=== PATIENT | male | born 1960 | race Caucasian/White ===

== ENCOUNTER 2019-03-28 13:52 | Emergency (ER) | payer BC, MEDICAID ==
--- NOTE | 2019-03-28 15:07 | EDM.PDOC ---
ED HPI GENERAL MEDICAL PROBLEM - General Chief Complaint: Headache Stated Complaint: HEADACHE SENT BY WALKIN Time Seen by Provider: 03/28/19 14:45 Source of Information: Reports: Patient, Family (), Provider, RN, RN Notes Reviewed History Limitations: Reports: No Limitations - History of Present Illness INITIAL COMMENTS - FREE TEXT/NARRATIVE: Clem Wilder presents to our ED today with head pain located right behind the ear. He reports the pain started yesterday after he was mowing. He does note that he was oozing a riding lawn more and going underneath several trees which caused him to talk and maneuver to avoid the branches. He reports it started as an earache but advanced to neck pain. Has been taking Advil with no release. Reports the pain as a 2 out of 10 that pulsates and comes and goes at various times and lasting for various lengths. Moving his head to the left and looking down does make his right side hurt. Denies any recent trauma or falls. He does wear bilateral hearing aids. No vision changes or history of job problems. No issues well moving the jaw. He does report a runny nose but he states that this is likely allergies. No recent plane rides or scuba diving. Denies any chest pain, shortness of breath, nausea, vomiting. He is a diabetic with a history of HLD and gout. His PCP is Sonya Hardy. Headache Pain Score (Numeric/FACES): 3 - Related Data Allergies Allergy/AdvReac Type Severity Reaction Status Date / Time metformin Allergy Nausea and Verified 03/28/19 14:07 Vomiting Home Meds: Home Meds Allopurinol [Zyloprim] 100 mg PO DAILY 03/28/19 [History] Aspirin 81 mg PO DAILY 03/28/19 [History] Diclofenac Sodium [Voltaren] 50 mg PO BID #10 tab.ec 03/28/19 [Rx] Empagliflozin [Jardiance] 25 mg PO DAILY 03/28/19 [History] Loratadine 10 mg PO DAILY 03/28/19 [History] Non-Formulary Medication [NF Drug] 0.25 mg IM WEEKLY 03/28/19 [History] Rosuvastatin [Crestor] 10 mg PO DAILY 03/28/19 [History] oxyCODONE HCl/Acetaminophen [Percocet 5-325 mg Tablet] 1 each PO QID #10 tablet 03/28/19 [Rx] Past Medical History Gastrointestinal History: Reports: Other (See Below) Other Gastrointestinal History: hernia Endocrine/Metabolic History: Reports: Diabetes, Type II Social & Family History - Tobacco Use Smoking Status *Q: Never Smoker Second Hand Smoke Exposure: No - Caffeine Use Caffeine Use: Reports: Coffee - Recreational Drug Use Recreational Drug Use: No ED ROS GENERAL - Review of Systems Review Of Systems: See Below Constitutional: Denies: Fever, Chills, Malaise, Weakness, Fatigue HEENT: Reports: Rhinitis. Denies: Ear Discharge, Ear Pain, Eye Discharge, Eye Pain, Hearing Loss, Nose Pain, Sinus Problem, Throat Pain, Throat Swelling, Vision Change Respiratory: Reports: No Symptoms. Denies: Shortness of Breath, Wheezing, Cough , Sputum Cardiovascular: Reports: No Symptoms. Denies: Chest Pain GI/Abdominal: Denies: Abdominal Pain, Diarrhea, Nausea, Vomiting Musculoskeletal: Reports: Neck Pain, Other (Head pain) - Physical Exam Exam: See Below Exam Limited By: No Limitations General Appearance: Alert, WD/WN, No Apparent Distress Eye Exam: Bilateral Eye: EOMI, PERRL Ears: Normal External Exam, Normal Canal, Hearing Grossly Normal, Normal TMs, Hearing Loss (History of and does wear bilateral hearing aids.) Nose: Normal Inspection, Normal Mucosa, No Blood Throat/Mouth: Normal Inspection, Normal Lips, Normal Teeth, Normal Gums, Normal Oropharynx, Normal Voice, No Airway Compromise Head Exam: Atraumatic, Normocephalic, Other (Tenderness noted with palpitation to mastoid process and tympanic area. No redness observed. No pain without palpation.) Neck: Normal Inspection, Supple, Full Range of Motion, Other (Pain noted with palpation of sternocleidomastoid. No pain without palpation.). No: Lymphadenopathy (L), Lymphadenopathy (R) Respiratory/Chest: No Respiratory Distress, Lungs Clear Cardiovascular: Normal Peripheral Pulses, Regular Rate, Rhythm, No Edema, No Gallop, No JVD, No Murmur Course - Vital Signs Last Recorded V/S: Last Vital Signs Temp 97.3 F 03/28/19 14:05 Pulse Resp 20 03/28/19 14:05 BP 157/104 H 03/28/19 14:05 Pulse Ox 100 03/28/19 14:05 Departure - Departure Time of Disposition: 15:08 Disposition: Home, Self-Care 01 Condition: Good Clinical Impression: Neck muscle strain Qualifiers: Encounter type: initial encounter Qualified Code(s): S16.1XXA - Strain of muscle, fascia and tendon at neck level, initial encounter - Discharge Information *PRESCRIPTION DRUG MONITORING PROGRAM REVIEWED*: No *COPY OF PRESCRIPTION DRUG MONITORING REPORT IN PATIENT IGNACIA: No Prescriptions: Diclofenac Sodium [Voltaren] 50 mg PO BID #10 tab.ec oxyCODONE HCl/Acetaminophen [Percocet 5-325 mg Tablet] 1 each PO QID #10 tablet Referrals: Sonya Hardy NP [Primary Care Provider] - Additional Instructions: You were seen today in the ED for neck pain and headache. It is felt your symptoms are the results of movements made while mowing under tree branches. You were sent a prescription for an NSAID which will help with swelling and pain. If pain gets very severe you can also take Percocet as prescribed. Be cautious with using Percocet as it may make use sleepy and impair driving. Should symptoms continue or worsen you may return to the emergency room or contact your primary care provider. If you do not feel better in 7-10 days should follow-up with your primary care provider.
== END 2019-03-28 15:34 | disposition home or self-care (01) ==
LOC: JD.ED 13:52
DX: S16.1XXA Strain of muscle, fascia and tendon at neck level, initial encounter (principal); E11.9 Type 2 diabetes mellitus without complications; Z79.82 Long term (current) use of aspirin; Z79.899 Other long term (current) drug therapy; Z88.8 Allergy status to other drugs, medicaments and biological substances; X58.XXXA Exposure to other specified factors, initial encounter
CPT/HCPCS: 99283